=== PATIENT | male | born 1955 | race Caucasian/White ===

== ENCOUNTER → 2017-01-08 | Outpatient (CLI) | payer OTHER | LOC: US 01-07 16:30 | DX: M79.605 Pain in left leg (principal) | CPT/HCPCS: 93971 ==

== ENCOUNTER → 2017-02-20 | Outpatient (CLI) | payer OTHER | LOC: EMI 16:55 | DX: R06.02 Shortness of breath (principal); R05 Cough; Z87.09 Personal history of other diseases of the respiratory system | CPT/HCPCS: 72148 ==

== ENCOUNTER → 2021-03-26 | Outpatient (CLI) | payer OTHER | LOC: HEART 5 14:06 | DX: R00.1 Bradycardia, unspecified (principal) ==

== ENCOUNTER → 2021-04-11 | Outpatient (CLI) | payer OTHER | LOC: KOH-I 04-10 10:00 | DX: R91.1 Solitary pulmonary nodule (principal) | CPT/HCPCS: 71250 ==

== ENCOUNTER → 2021-12-26 | Outpatient (CLI) | payer OTHER | LOC: ECHO 08:44 → NM 10:00 | DX: R07.9 Chest pain, unspecified (principal); I49.3 Ventricular premature depolarization; I34.1 Nonrheumatic mitral (valve) prolapse | CPT/HCPCS: ECHO; 78452; 93017; 93306; A9502; J2785 ==

== ENCOUNTER → 2022-01-02 | Outpatient (CLI) | payer OTHER ==
[2022-01-02 17:18] LABS: HEMOGLOBIN 13.7 gm/dl (14.0-17.5); RED BLOOD COUNT 4.32 M/UL (4.20-5.50); WHITE BLOOD COUNT 5.4 K/UL (4.5-11.0)
[2022-01-02 17:32] LABS: BUN/CREATININE RATIO 24 (0-10)
== END ==
LOC: RAD 16:34
DX: R94.39 Abnormal result of other cardiovascular function study (principal); I20.9 Angina pectoris, unspecified; F41.9 Anxiety disorder, unspecified; R07.9 Chest pain, unspecified; F32.A Depression, unspecified; R53.81 Other malaise; I10 Essential (primary) hypertension; I34.1 Nonrheumatic mitral (valve) prolapse
CPT/HCPCS: 36415; 80048; 85025; 85610; 85730; 93005

== ENCOUNTER → 2022-01-15 | Outpatient (CLI) | payer OTHER ==
[~2022-01-15] VITALS: Ht 182.9 cm; Wt 95.3 kg
[~2022-01-15] MED LIST: CENTRUM SILVER1 EAC1 PO; ENALAPRIL-HCTZ1 EACH PO; FLONASE ALLER15.8 ML; ISOSORBIDE MONO30 MG PO; METOPROLOL SUCC25 MG PO; NITROSTAT 0.40.4 MG SL; NORVASC2.5 MG PO; PROZAC 20 MG CA20 MG PO; TRAMADOL HCL50 MG PO; VAZALORE81 MG PO
== END ==
LOC: CATH 06:22
DX: I25.118 Atherosclerotic heart disease of native coronary artery with other forms of angina pectoris (principal); I10 Essential (primary) hypertension; F32.A Depression, unspecified; Z88.1 Allergy status to other antibiotic agents; Z79.82 Long term (current) use of aspirin; Z79.899 Other long term (current) drug therapy; Z20.822 Contact with and (suspected) exposure to COVID-19
CPT/HCPCS: 99152; C1769; C1887; C1894; J1644; J2250; J3010; J7030; Q9967